=== PATIENT | female | born 1995 | race Caucasian/White ===

== ENCOUNTER → 2021-12-18 15:14 | Outpatient (CLI) | payer OTHER, SELFPAY ==
[2021-12-18 15:58] LABS: COVID19 -Nasal RAPID Negative (Negative)
== END ==
PROVIDERS: PCP Nurse Practitioner Family; Visit Provider Family Medicine Sleep Medicine
DX: Z20.822 Contact with and (suspected) exposure to COVID-19 (principal)
CPT/HCPCS: 87635; C9803

== ENCOUNTER 2021-12-21 13:20 | Day surgery (SDC) | payer OTHER, SELFPAY ==
--- NOTE | 2021-12-21 | PATH_ITS ---
[facility] Accession Number: [id number] . 01 Material submitted: . rectum - RECTAL POLYP . 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 MRV 12/23/2021 1059 Local . 02 Electronically signed: . Yee Ruiz MD, Pathologist NPI- [id number] . 01 Gross description: . RECTAL POLYP: Received in formalin are multiple fragment(s) of james, soft tissue measuring 0.6 x 0.5 x 0.2 cm in aggregate submitted entirely in 1 cassette(s) /TRC 12/22/2021 1512 Local . 02 Pathologist provided ICD-10: K63.5, K62.5, R10.9, K59.00 . 02 CPT . 879157 Specimen Comment: A courtesy copy of this report has been sent to [facility] Performed at: 01 [facility] Cytology [address] [facility], [place], [place] [id number] MD Jackson Loaiza MD Phone: [phone] Performed at: 02 [facility] [address] [place], [place] [id number] MD Ashley Lozada MD Phone: [phone]
--- NOTE | 2021-12-21 13:37 | PM.HP.1 ---
History of Present Illness History of Present Illness Date Patient Seen: 12/21/21 Time Patient Seen: 13:37 Chief complaint: DX COLONOSCOPY Narrative: I reviewed the note from Alyssayosi Adorno November 24, 2021. No significant changes. No bleeding has been noted for the last couple of weeks. Patient History Surgical History H/O: hysterectomy History of appendectomy History of cholecystectomy Family & Social History Tobacco & Substance use: Smoking Status Never smoker Meds Home Medications and Allergies Home Medications Medication Instructions Recorded Confirmed Type acetaminophen 500 mg tablet 1,000 mg PO Q6H PRN 10/30/21 10/30/21 History (Tylenol Extra Strength) cetirizine 10 mg tablet 10 mg PO DAILY PRN 10/30/21 10/30/21 History hydroxyzine pamoate 25 mg capsule 25 mg PO BEDTIME PRN 10/30/21 10/30/21 History ibuprofen 400 mg tablet 400 mg PO Q6H 10/30/21 10/30/21 History norethindrone acetate 5 mg tablet 2.5 mg PO DAILY tab 10/30/21 10/30/21 History ondansetron 4 mg disintegrating 4 mg PO Q6H 10/30/21 10/30/21 History tablet sertraline 100 mg tablet 100 mg PO DAILY 10/30/21 10/30/21 History Allergies Allergy/AdvReac Type Severity Reaction Status Date / Time No Known Drug Allergies Allergy Verified 12/21/21 13:32 Review of Systems Review of Systems ROS: Yes All systems reviewed with the patient and are negative except as otherwise documented Exam Const General: cooperative and comfortable Orientation: alert [facility] Head: normocephalic Ears: external ears normal Nose: external nose normal Face and sinus: normal facial exam Mouth: oral mucosae normal Eyes General: appearance normal, both eyes and all related structures Neck Neck: normal visual inspection Chest Chest: normal inspection of the chest Resp Effort & Inspection: normal respiratory effort Cardio Rate: regular rate GI Inspection: normal to inspection Skin General: no rashes or lesions noted and No jaundice Neuro General: patient alert and moves all extremities Cognition: normal cognition Speech: speech normal Extrem General: no pedal edema Psych Appearance: grossly normal Assessment & Plan Assessment & Plan narrative: 26-year-old female with regular symptoms of abdominal pain, difficulty with constipation, intermittent rectal bleeding. Colonoscopy is pursued today. Time Spent With Patient Critical Care time: I spent a total of [] minutes of critical care time on this patient's care today; this time is exclusive of procedural time.
[2021-12-21 13:39] VITALS: BP 123/80; PULSE 79; RESP 16; TEMP 36.5; O2SAT 98; BMI 20.9
--- NOTE | 2021-12-21 13:39 | PM.PREOP ---
Pre-operative Note COVID-19 COVID-19 status: Negative Result date/Date tested (Pos, Neg/Pending): 12/18/21 Criteria for continued procedure: Possibility delay results in more complex future surgery or treatment Interval Note History & Physical reviewed/Exam performed by Physician: Yes Changes to H&P: Yes ASA Class (for procedural sedation): II
[2021-12-21] MEDS: SODIUM CHLORIDE 0.9% 1,000 ML 84 ML IV (13:49)
--- NOTE | 2021-12-21 15:08 | SUR.OPER ---
SHORT PERIOD OF EXTERNAL ABDOMINAL PRESSURE
--- NOTE | 2021-12-21 15:18 | PM.OP.COLON ---
Operative Date/Time/Diagnoses Date of procedure: 12/21/21 Time of procedure: 15:18 Pre-op diagnosis: Abdominal pain constipation rectal bleeding. Post-op diagnosis: same Procedure & Clinicians Study performed: Colonoscopy with hot snare polypectomy Same procedure as scheduled: Yes Indications: Abdominal pain constipation rectal bleeding. Surgeon: Oswaldo Sharif Procedure Notes SCOAP/Timeout: Done Procedure in detail: After the risks and benefits were explained, written and verbal informed consent was obtained. The patient was brought into the procedure room and placed into the left lateral decubitus position. Please see nurse strategy director notes for sedation details. Digital rectal examination was accomplished. The scope was introduced into the patient and advanced under direct visualization to the cecum as identified by the appendiceal orifice and ileocecal valve. The scope was slowly withdrawn to carefully examine the mucosa for any defects or lesions. Comprehensive imaging was accomplished throughout the rectum including the dentate line. The colon was decompressed, the scope was then removed from the patient who tolerated the procedure well. Pediatric colonoscope Bowel prep adequate Scope withdrawal time: 9 minutes Sedation minutes: 21 Complications: none Impression: Patient had a slightly tortuous sigmoid region rendering navigation slightly challenging. No proctitis no colitis throughout. The terminal ileum was interrogated and appeared visually normal. There was an approximately 7 mm pedunculated polyp in the rectum removed with hot snare. No additional pathology was appreciated throughout. Endoscopic diagnosis 1. Rectal polyp 2. Otherwise visually unremarkable colonoscopy and terminal ileoscopy Post-procedure Plan for aftercare: 1. Await histopathology 2. Repeat colonoscopy will likely be suggested for 5 years if this polyp is confirmed adenomatous. 3. Follow up GI clinic with Alyssa Adorno Disposition: PACU
[2021-12-21 15:22] VITALS: BP 102/59; PULSE 61; RESP 13; TEMP 36.8; O2SAT 98
[2021-12-21 15:25] VITALS: BP 105/70; PULSE 63; RESP 18; O2SAT 98
[2021-12-21 15:30] VITALS: BP 100/74; PULSE 63; RESP 18; O2SAT 98
[2021-12-21 15:44] VITALS: BP 102/69; PULSE 72; RESP 16; O2SAT 98
== END 2021-12-21 15:55 | disposition home or self-care (01) ==
PROVIDERS: PCP Nurse Practitioner Family; Referring Provider Internal Medicine Gastroenterology; Visit Provider Internal Medicine Gastroenterology
PROC: 0DJD8ZZ Inspection of Lower Intestinal Tract, Via Natural or Artificial Opening Endoscopic (ICD-10-PCS; CPT 45378; principal; 2021-12-21 14:30)
DX: R10.9 Unspecified abdominal pain (principal); K62.5 Hemorrhage of anus and rectum; K59.00 Constipation, unspecified; K62.1 Rectal polyp
CPT/HCPCS: 45385; J2704

== ENCOUNTER → 2022-02-02 11:49 | Outpatient (CLI) | payer OTHER, SELFPAY ==
--- NOTE | 2022-02-02 11:52 | DI.MRI.S_ITS ---
PROCEDURE: MR PELVIS WO CON INDICATIONS: Pelvic pain TECHNIQUE: Noncontrast coronal and axial T1 spin echo and STIR through the bony pelvis. COMPARISON: None. FINDINGS: Image quality: Excellent. Bones: Bone marrow of the pelvic ring, sacrum, and proximal femurs show normal signal throughout. No intraosseous lesions or fractures identified. The visualized lower lumbar spine appears normally aligned. Tendons: The gluteus medius and minimus tendons appear intact, without associated muscle atrophy. The nearby proximal iliotibial band also appears intact. The iliopsoas tendon appears intact, without adjacent bursal fluid collections or evidence for impingement syndrome. The origin of the hamstring tendon is intact at the ischial tuberosity, as well as the associated sacrotuberous ligament. The straight and reflected heads of the rectus femoris muscle origin appear intact, as well as the conjoint tendon. Soft tissues: Visualized muscles demonstrate normal bulk and internal signal. No joint effusions. There is a small amount of free fluid within the pelvis, within physiological limits in a menstruating female. Urinary bladder is decompressed. Hysterectomy Genitourinary structures and bowel loops otherwise appear normal where visualized. IMPRESSION: 1. No osseous abnormalities. 2. Postsurgical sequelae. 3. Small amount of free fluid within the pelvis, within physiological limits in a menstruating female. Dictated by: Paula Willis M.D. on 02/02/2022 at 14:13 Approved by: Paula Willis M.D. on 02/02/2022 at 14:15
== END ==
PROVIDERS: PCP Nurse Practitioner Family; Referring Provider Physical Medicine & Rehabilitation Pain Medicine; Visit Provider Physical Medicine & Rehabilitation Pain Medicine
DX: R10.2 Pelvic and perineal pain (principal)
CPT/HCPCS: 72195

== ENCOUNTER 2022-04-01 13:29 | Emergency (ER) | payer OTHER, SELFPAY ==
[2022-04-01] VITALS (8 sets, daily range): BP systolic 120–128; BP diastolic 73–82; PULSE 73–89; RESP 16–18; TEMP 37.6; O2SAT 97–100; BMI 20.9
[2022-04-01 14:21] LABS: Add Manual Diff / Slide Review NO; Basophils Absolute Auto 0 /uL (0-100); Basophils Percent Auto 0.5 % (0-2); Eosinophils Absolute Auto 0 /uL (0-450); Eosinophils Percent Auto 0.4 % (2-4); Hematocrit 39.1 % (36-46); Hemoglobin 13.8 g/dL (12.0-16.0); Lymphocytes Absolute Auto 1700 /uL (1100-4500); Lymphocytes Percent Auto 30.1 % (25-40); Mean Corpuscular HGB Conc 35.2 % (30-36); Mean Corpuscular Hemoglobin 32.5 PG (26-34); Mean Corpuscular Volume 92.3 fL (80-100); Monocytes Absolute Auto 600 /uL (0-900); Neutrophils Absolute Auto 3300 /uL (1500-7000); Platelet Count 292 X10^3/uL (150-400); Red Blood Cell Count 4.23 X10^6/uL (4.0-5.2); Red Cell Distribution Width 12.2 % (11.6-14.8); White Blood Cell Count 5.7 X10^3/uL (4.5-11.0)
[2022-04-01 14:31] LABS: Alanine Aminotransferase 12 IU/L (<35); Albumin 4.8 g/dL (3.5-5.0); Albumin Globulin Ratio 1.3 (1.0-2.8); Alkaline Phosphatase 52 U/L (38-126); Aspartate Aminotransferase 23 IU/L (14-36); BUN Creatinine Ratio 18.8 (6-22); Bilirubin Total 0.9 mg/dL (0.2-1.3); Blood Urea Nitrogen 12 mg/dL (7-17); Calcium 9.4 mg/dL (8.4-10.2); Carbon Dioxide 20 mmol/L (22-32); Chloride 108 mmol/L (98-107); Estimated Glomerular Filt Rate > 60 mL/min (>60); Globulin 3.7 g/dL (1.7-4.1); Glucose 105 mg/dL (70-100); HEMOLYSIS < 15 (0-50); Lipase 109 U/L (23-300); Potassium 3.9 mmol/L (3.4-5.1); Sodium 138 mmol/L (137-145); Total Protein 8.5 g/dL (6.3-8.2)
--- NOTE | 2022-04-01 16:51 | DI.US.S_ITS ---
PROCEDURE: US PELVIC COMPLETE INDICATIONS: hx of hysterectomy and salpingectomy, left pelvic pain TECHNIQUE: Real-time scanning was performed of the pelvic organs, with image documentation. Additional endovaginal scanning was necessary due to incomplete visualization of the adnexal and endometrial structures by transabdominal scanning. COMPARISON: None. FINDINGS: Uterus: Hysterectomy Ovaries: Right and left ovaries measure 2.5 x 2.6 x 1.6 cm and 2.5 x 1.7 x 2.3 cm respectively. Both ovaries have appropriate size, echotexture and vascularity without evidence of torsion or adnexal mass. Other: No pathologic free abdominal or pelvic fluid. IMPRESSION: Unremarkable ultrasound the pelvis status post hysterectomy Approved by: Guanaco Thomas M.D. on 04/01/2022 at 16:52
--- NOTE | 2022-04-01 16:54 | ED.ABDPAIN ---
HPI - Abdominal Pain <Ashley Geller BALANCE SHEET ANALYST - Last Filed: 04/01/22 20:15> General Chief Complaint: Abdominal Pain Stated Complaint: Abd pain Time Seen by Provider: 04/01/22 16:40 Source: patient Mode of arrival: Ambulatory History of Present Illness HPI narrative: This is a 26-year-old female with history of complicated pelvis due to endometriosis has surgical history including hysterectomy, fallopian tubes, and excessive endometrial tissue who presents to the emergency department complaining of two weeks of increasing left-sided pelvic tenderness. Patient reports that her menses have started to become more regular, her last menses was 03/12/22. Patient has recently established care with Dr. Jacqueline Diehl from the [facility]. She reports having increased pain in her abdomen and back, left-sided abdominal pain, she had a colonoscopy recently here at this hospital with a polyp removed which was benign. She has a history of connective tissue disorders in her family, denies any history of Mis-Danlos syndrome. She denies history of blood clots. Patient denies any history of , reports that her pain in her left lower pelvis is stabbing and constant. She reports that it is worse during a bowel movement and she has been having excess gas she takes norethindrone and cetirizine daily, denies any other regular medications. Related Data Home Medications Medication Instructions Recorded Confirmed acetaminophen 500 mg tablet 1,000 mg PO Q6H PRN Pain (Scale 10/30/21 12/29/21 (Tylenol Extra Strength) Score 1-3) cetirizine 10 mg tablet 10 mg PO DAILY 10/30/21 12/29/21 hydroxyzine pamoate 25 mg capsule 25 mg PO BEDTIME 10/30/21 12/29/21 ibuprofen 400 mg tablet 400 mg PO Q6H 10/30/21 12/29/21 norethindrone acetate 5 mg tablet 2.5 mg PO DAILY 10/30/21 12/29/21 ondansetron 4 mg disintegrating 4 mg PO Q6H 10/30/21 12/29/21 tablet sertraline 100 mg tablet 100 mg PO DAILY 10/30/21 12/29/21 Previous Rx's Medication Instructions Recorded hydrocodone 5 mg-acetaminophen 325 1 tab PO Q6-8H PRN pain #14 tabs 04/01/22 mg tablet polyethylene glycol 3350 17 17 g PO DAILY PRN soft stool #238 04/01/22 gram/dose oral powder (Miralax) grams Allergies Allergy/AdvReac Type Severity Reaction Status Date / Time No Known Drug Allergies Allergy Verified 12/29/21 14:21 Review of Systems <KVGN Martinez - Last Filed: 04/01/22 20:15> Review of Systems Narrative: General: denies fever, chills Head/Neck: denies headache, neck pain Eyes: denies visual changes, eye pain Cardio: denies chest pain, palpitations Respiratory: denies shortness of breath, cough GI: Endorses left lower quadrant/pelvic pain, nausea, vomiting, or diarrhea, complains of left pelvic pain without any changes to her stool or vaginal discharge. : denies dysuria, hematuria or flank pain MSK: denies new joint pain, muscle weakness or swelling Skin: denies rash, itching or wound Neuro: denies numbness, tingling, dizziness Patient History <KVNG Martinez - Last Filed: 04/01/22 20:15> Surgical History H/O: hysterectomy History of appendectomy History of cholecystectomy Social History household members: spouse Smoking Status: Never smoker Smoking Status: Never smoker alcohol intake frequency: a few times a week Substance Use Type: marijuana Exam <KVNG Martinez - Last Filed: 04/01/22 20:15> Narrative Exam Narrative: Independently reviewed vitals signs and nursing notes. General: cooperative, comfortable, in no acute distress, well groomed, mildly anxious Head: atraumatic, symmetrical facial expressions Neck: supple Eyes: equal round and reactive, EOMI, conjunctiva normal Nose: nares patent, no rhinorrhea Mouth/Throat: moist mucus membranes Cardiovascular: regular rate and rhythm, no peripheral edema, warm extremities Respiratory: normal effort, able to speak in complete sentences, no audible wheezing, stridor, or rales. No retractions or tachypnea. GI: abdomen soft, tender to palpation over her left pelvis, nondistended, no masses, no exquisite tenderness with exam, without guarding or rebound. MSK: moves all extremities, neurovascularly intact, no weakness, normal tone Skin: brisk capillary refill, no rash, no erythema Neuro: normal speech and cognition, A&O x3 Psych: mental status is grossly normal, congruent mood, normal affect, pleasant and cooperative Initial Vital Signs Initial Vital Signs: Vital Signs Temperature 99.7 F H 04/01/22 13:37 Pulse Rate 84 04/01/22 13:37 Respiratory Rate 16 04/01/22 13:37 Blood Pressure 120/82 04/01/22 13:37 Pulse Oximetry 98 04/01/22 13:37 Oxygen Delivery Method 04/01/22 13:37 <Xavier Price DO - Last Filed: 04/07/22 00:39> Initial Vital Signs Initial Vital Signs: Vital Signs Temperature 99.7 F H 04/01/22 13:37 Pulse Rate 84 04/01/22 13:37 Respiratory Rate 16 04/01/22 13:37 Blood Pressure 120/82 04/01/22 13:37 Pulse Oximetry 98 04/01/22 13:37 Oxygen Delivery Method 04/01/22 13:37 Course <KVNG Martinez - Last Filed: 04/01/22 20:15> Orders Ordered: Discontinued Medications Hydrocodone Bitart/Acetaminophen (Hydrocodone/Acet 5/325 Prepack) 1 bottle MISC SEEINSTR ONE Stop: 04/01/22 18:54 Last Admin: 04/01/22 19:08 Dose: 1 bottle Documented By: MADONNA Hydromorphone HCl (Hydromorphone 0.5 Mg Inj) 0.5 mg IV NOW ONE Stop: 04/01/22 16:52 Last Admin: 04/01/22 17:04 Dose: 0.5 mg Documented By: MADONNA(2) Lactated Ringer's (Lactated Ringers) 500 mls @ 1,000 mls/hr IV BOLUS ONE Stop: 04/01/22 17:20 Last Infusion: 04/01/22 18:38 Dose: 0 mls/hr Documented By: MADONNA(2) Admin: 04/01/22 17:04 Dose: 1,000 mls/hr Documented By: MADONNA(2) Ketorolac Tromethamine (Ketorolac 30 Mg/Ml Vial) 15 mg IV NOW ONE Stop: 04/01/22 16:52 Last Admin: 04/01/22 17:04 Dose: 15 mg Documented By: MADONNA(2) Oxycodone/Acetaminophen (Oxycodone/Acetaminophen 5/325 Tablet) 1 tab PO NOW ONE Stop: 04/01/22 18:47 Last Admin: 04/01/22 18:53 Dose: 1 tab Documented By: AMU Vital Signs Vital signs: Vital Signs - 8 hr 04/01/22 13:37 04/01/22 16:36 04/01/22 16:36 Temperature 99.7 F H Pulse Rate 84 89 Respiratory Rate 16 18 Blood Pressure 120/82 125/73 Pulse Oximetry 98 100 Oxygen Delivery Method Room Air 04/01/22 17:00 04/01/22 17:00 04/01/22 17:38 Temperature Pulse Rate 81 87 Respiratory Rate 18 Blood Pressure 128/75 Pulse Oximetry 99 99 Oxygen Delivery Method 04/01/22 18:00 04/01/22 18:30 04/01/22 19:00 Temperature Pulse Rate 81 80 73 Respiratory Rate Blood Pressure Pulse Oximetry 98 97 98 Oxygen Delivery Method 04/01/22 19:06 04/01/22 19:06 Temperature Pulse Rate 80 Respiratory Rate Blood Pressure 122/79 Pulse Oximetry 98 Oxygen Delivery Method Room Air <Xavier Price, - Last Filed: 04/07/22 00:39> Orders Ordered: Discontinued Medications Hydrocodone Bitart/Acetaminophen (Hydrocodone/Acet 5/325 Prepack) 1 bottle MISC SEEINSTR ONE Stop: 04/01/22 18:54 Last Admin: 04/01/22 19:08 Dose: 1 bottle Documented By: MADONNA Hydromorphone HCl (Hydromorphone 0.5 Mg Inj) 0.5 mg IV NOW ONE Stop: 04/01/22 16:52 Last Admin: 04/01/22 17:04 Dose: 0.5 mg Documented By: MADONNA(2) Lactated Ringer's (Lactated Ringers) 500 mls @ 1,000 mls/hr IV BOLUS ONE Stop: 04/01/22 17:20 Last Infusion: 04/01/22 18:38 Dose: 0 mls/hr Documented By: MADONNA(2) Admin: 04/01/22 17:04 Dose: 1,000 mls/hr Documented By: MADONNA(2) Ketorolac Tromethamine (Ketorolac 30 Mg/Ml Vial) 15 mg IV NOW ONE Stop: 04/01/22 16:52 Last Admin: 04/01/22 17:04 Dose: 15 mg Documented By: MADONNA(2) Oxycodone/Acetaminophen (Oxycodone/Acetaminophen 5/325 Tablet) 1 tab PO NOW ONE Stop: 04/01/22 18:47 Last Admin: 04/01/22 18:53 Dose: 1 tab Documented By: AMU Vital Signs Vital signs: Vital Signs - 8 hr 04/01/22 13:37 04/01/22 16:36 04/01/22 16:36 Temperature 99.7 F H Pulse Rate 84 89 Respiratory Rate 16 18 Blood Pressure 120/82 125/73 Pulse Oximetry 98 100 Oxygen Delivery Method Room Air 04/01/22 17:00 04/01/22 17:00 04/01/22 17:38 Temperature Pulse Rate 81 87 Respiratory Rate 18 Blood Pressure 128/75 Pulse Oximetry 99 99 Oxygen Delivery Method 04/01/22 18:00 04/01/22 18:30 04/01/22 19:00 Temperature Pulse Rate 81 80 73 Respiratory Rate Blood Pressure Pulse Oximetry 98 97 98 Oxygen Delivery Method 04/01/22 19:06 04/01/22 19:06 Temperature Pulse Rate 80 Respiratory Rate Blood Pressure 122/79 Pulse Oximetry 98 Oxygen Delivery Method Room Air MDM - Abdominal Pain <Ashley Geller [facility] - Last Filed: 04/01/22 20:15> Lab Data Result diagrams: 04/01/22 14:04 04/01/22 14:04 Labs: Lab Results 04/01/22 04/01/22 04/01/22 Range/Units 14:04 14:04 14:04 WBC 5.7 (4.5-11.0) X10^3/uL RBC 4.23 (4.0-5.2) X10^6/uL Hgb 13.8 (12.0-16.0) g/dL Hct 39.1 (36-46) % MCV 92.3 (80-100) fL MCH 32.5 (26-34) PG MCHC 35.2 (30-36) % RDW 12.2 (11.6-14.8) % Plt Count 292 (150-400) X10^3/uL Neut % (Auto) 59.0 (50-75) % Lymph % (Auto) 30.1 (25-40) % [place] % (Auto) 10.0 (3-14) % Eos % (Auto) 0.4 L (2-4) % Baso % (Auto) 0.5 (0-2) % Neut # (Auto) 3300 (9589-6677) /uL Lymph # (Auto) 1700 (7372-1595) /uL [place] # (Auto) 600 (0-900) /uL Eos # (Auto) 0 (0-450) /uL Baso # (Auto) 0 (0-100) /uL Sodium 138 (137-145) mmol/L Potassium 3.9 (3.4-5.1) mmol/L Chloride 108 H (98-107) mmol/L Carbon Dioxide 20 L (22-32) mmol/L BUN 12 (7-17) mg/dL Creatinine 0.64 (0.52-1.04) mg/dL Estimated GFR > 60 (>60) mL/min BUN/Creatinine Ratio 18.8 (6-22) Glucose 105 H (70-100) mg/dL Lactate 1.3 (0.7-2.1) mmol/L Calcium 9.4 (8.4-10.2) mg/dL Total Bilirubin 0.9 (0.2-1.3) mg/dL AST 23 (14-36) IU/L ALT 12 (<35) IU/L Alkaline Phosphatase 52 (38-126) U/L Total Protein 8.5 H (6.3-8.2) g/dL Albumin 4.8 (3.5-5.0) g/dL Globulin 3.7 (1.7-4.1) g/dL Albumin/Globulin Ratio 1.3 (1.0-2.8) Lipase 109 (23-300) U/L Point of care testing: Urine Dip Bedside Urine Glucose Negative Bedside Urine Bilirubin - Negative Bedside Urine Ketone - Negative Urine Specific [place] 1.015 Bedside Urine Occult Blood +/- Bedside Urine pH 7.0 Bedside Urine Protein - Negative Bedside Urine Urobilinogen 0.2 Bedside Urine Nitrite - Negative Bedside Urine Leukocytes - Negative Esterase Imaging Data CT scan - abdomen/pelvis: Radiologist's Impression: PROCEDURE:? CT ABDOMEN PELVIS W CON ? INDICATIONS:? 26-year-old female with left-sided pelvic pain, history of endometriosis, hx hysterectomy/salpigectomy, left pelvic pain ? TECHNIQUE:? After the administration of intravenous contrast, axial sections acquired from the lung bases to the pubic symphysis.? Coronal and sagittal reformats were performed.? For radiation dose reduction, the following was used:? automated exposure control, adjustment of mA and/or kV according to patient size.? ? COMPARISON:? None. ? FINDINGS: ? Lower thorax: The lung bases are clear.? Heart size normal.? No hiatal hernia. ? Liver:? Normal in size and attenuation. No contour deformity present. ? Biliary system:? Cholecystectomy.? No intra or extrahepatic bile duct dilation. ? Pancreas:? Unremarkable without mass or inflammation evident. ? Spleen:? Normal in size and density. ? Adrenals:? Normal morphology and density. ? Reproductive system:? Hysterectomy. ? Urinary system:? Normal renal size and attenuation. No renal calculi, hydronephrosis, or solid mass present.? Urinary bladder unremarkable. ? Gastrointestinal system:? Moderate fecal debris present throughout the colon.? No obstruction.? Stomach and small bowel unremarkable. ? Appendix:? Appendectomy ? Peritoneal spaces:? No mesenteric or retroperitoneal adenopathy.? No free air.? No free fluid.? ? Vasculature:? The IVC, aorta and iliac vasculature are unremarkable. ? Abdominal wall:? Abdominal wall intact without evidence of ventral or inguinal hernias. ? Musculoskeletal:? Normal bone mineralization.? No acute fractures.? ? IMPRESSION: ? 1. No acute CT findings in the abdomen and pelvis. ? 2. Moderate fecal debris throughout the colon without obstruction. ? ? Approved by: Guanaco Thomas M.D. on 04/01/2022 at 16:49? MDM Narrative Medical decision making narrative: This is a 26-year-old female with history of complicated endometriosis who presents to the emergency department with left pelvic pain for the last two months and states it has been getting worse over the last week. Patient has a history of hysterectomy, salpingectomy, cholecystectomy, appendectomy and has her remaining ovaries. Patient's UA is negative for any WBCs, nitrites, RBCs. Lab work was unremarkable overall. Patient does not have any leukocytosis, anemia, electrolyte abnormalities, elevated liver enzymes, bilirubin lipase, or other. Pelvic ultrasound was obtained and shows no pathologic free abdominal or pelvic fluid, both ovaries have appropriate size, echotexture, and vascularity without evidence of torsion or adnexal mass. Abdomen pelvis CT was obtained due to lack of findings on the ultrasound, no acute CT findings were found on the abdomen and pelvis either. Moderate fecal debris throughout the colon without obstruction. Discussed these findings with the patient, she endorses having painful bowel movements in this left lower quadrant. She has a colonoscopy two months ago with removal of one polyp but she is not had any further symptoms, no blood in her stool, and the polyp was benign. Discussed treating her pain with an additional stool softener, she is taking one at nighttime but discussed adding MiraLax, she was prescribed oral ketorolac for her pain encouraged to take it with food and water. She was also given a prescription of hydrocodone for this pain and encouraged to follow-up with OBGYN regarding her endometriosis. Patient reports that she has a referral for Dr. janie camarillo in [facility] but she does not see patients for for other OBGYN needs other than endometriosis. She was referred to Dr. Talamantes and encouraged to call make an appointment with [facility] for follow-up. Patient has history of pelvis MRI from 02/02/2022 also without significant findings. No peritoneal signs on abdominal exam. Patient remains p.o. tolerant. Serial abdominal exam without increase in abdominal pain. Given history and exam, low suspicion for acute abdominal process, such as acute cholecystitis, pancreatitis, perforated viscus, atypical appendicitis, colitis, diverticulitis or torsion. Extensive conversation about ER return precautions and need for close follow-up. Patient is appropriate and amenable to discharge home. Vital signs are stable on repeat examination is unremarkable. Patient has been informed of results. Patient has been given strict return to ER precautions for any new or worsening symptoms. Patient understands to follow up closely with outpatient providers as instructed. Patient understands plan and agrees to discharge home. All questions and concerns answered at this time. <Xavier Price, DO - Last Filed: 04/07/22 00:39> Lab Data Labs: Lab Results 04/01/22 04/01/22 04/01/22 Range/Units 14:04 14:04 14:04 WBC 5.7 (4.5-11.0) X10^3/uL RBC 4.23 (4.0-5.2) X10^6/uL Hgb 13.8 (12.0-16.0) g/dL Hct 39.1 (36-46) % MCV 92.3 (80-100) fL MCH 32.5 (26-34) PG MCHC 35.2 (30-36) % RDW 12.2 (11.6-14.8) % Plt Count 292 (150-400) X10^3/uL Neut % (Auto) 59.0 (50-75) % Lymph % (Auto) 30.1 (25-40) % [place] % (Auto) 10.0 (3-14) % Eos % (Auto) 0.4 L (2-4) % Baso % (Auto) 0.5 (0-2) % Neut # (Auto) 3300 (2438-1747) /uL Lymph # (Auto) 1700 (6607-4861) /uL [place] # (Auto) 600 (0-900) /uL Eos # (Auto) 0 (0-450) /uL Baso # (Auto) 0 (0-100) /uL Sodium 138 (137-145) mmol/L Potassium 3.9 (3.4-5.1) mmol/L Chloride 108 H (98-107) mmol/L Carbon Dioxide 20 L (22-32) mmol/L BUN 12 (7-17) mg/dL Creatinine 0.64 (0.52-1.04) mg/dL Estimated GFR > 60 (>60) mL/min BUN/Creatinine Ratio 18.8 (6-22) Glucose 105 H (70-100) mg/dL Lactate 1.3 (0.7-2.1) mmol/L Calcium 9.4 (8.4-10.2) mg/dL Total Bilirubin 0.9 (0.2-1.3) mg/dL AST 23 (14-36) IU/L ALT 12 (<35) IU/L Alkaline Phosphatase 52 (38-126) U/L Total Protein 8.5 H (6.3-8.2) g/dL Albumin 4.8 (3.5-5.0) g/dL Globulin 3.7 (1.7-4.1) g/dL Albumin/Globulin Ratio 1.3 (1.0-2.8) Lipase 109 (23-300) U/L Point of care testing: Urine Dip Bedside Urine Glucose Negative Bedside Urine Bilirubin - Negative Bedside Urine Ketone - Negative Urine Specific [place] 1.015 Bedside Urine Occult Blood +/- Bedside Urine pH 7.0 Bedside Urine Protein - Negative Bedside Urine Urobilinogen 0.2 Bedside Urine Nitrite - Negative Bedside Urine Leukocytes - Negative Esterase Discharge Plan Departure Patient Disposition: Home Clinical Impression: Pelvic pain, Endometriosis Activity Restrictions/Additional Instructions: *You have been diagnosed with pelvic pain without any acute or dangerous findings in your abdomen/pelvis. Your lab work overall is reassuring. Your ultrasound and CT abdomen pelvis do not show any acute findings or any fluid collections or concerning masses. This is great news, please follow-up with your OBGYN Dr. Palencia and please call Dr. Talamantes and schedule an appointment with him or any of the other OBGYN in the clinic. It is good news it we did not find any concerning findings on your workup today, this is most likely your endometriosis. Please follow-up with your outpatient providers as you have them scheduled, if you develop any other symptoms, please return for new or worsening symptoms. If you develop a sore throat, shortness of breath, please consider COVID as well. This can cause inflammation of other areas. I hope you feel better soon. *What to do: *Please continue to take your regular medications as directed. [ x] New medication prescriptions sent to your pharmacy: [ DOD] [ ] New medication written as a paper prescription [ ] No new medications given *Please follow up with your primary care provider in 2-3 days, call for an appointment. Let them know you were seen in the Emergency Department and that we asked that you be seen for follow-up. We will electronically transmit a record of today's note if your PCP is in our system *If you do not have a primary care provider please contact [phone] to establish care with one of the [facility] primary care providers. *Return to Emergency Department if you should have any new, worsening or concerning symptoms, such as [fever greater than 101F, chills, worsening pain, persistent vomiting or other bothersome symptoms] Prescriptions: New hydrocodone-acetaminophen 5-325 mg tablet 1 tab PO Q6-8H PRN (Reason: pain) Qty: 14 0RF polyethylene glycol 3350 [Miralax] 17 gram/dose powder 17 g PO DAILY PRN (Reason: soft stool) Qty: 238 0RF No Action sertraline 100 mg tablet 100 mg PO DAILY cetirizine 10 mg tablet 10 mg PO DAILY norethindrone acetate 5 mg tablet 2.5 mg PO DAILY hydroxyzine pamoate 25 mg capsule 25 mg PO BEDTIME ondansetron 4 mg tablet,disintegrating 4 mg PO Q6H acetaminophen [Tylenol Extra Strength] 500 mg tablet 1,000 mg PO Q6H PRN (Reason: Pain (Scale Score 1-3)) ibuprofen 400 mg tablet 400 mg PO Q6H Referrals: Marissa Arias ARNP [Primary Care Provider] - Marychuy Palencia MD [Non-Staff] - Tai Talamantes MD [Physician] - Visit Report Forms: Patient Portal/API <Xavier Price DO - Last Filed: 04/07/22 00:39> [facility] Wood Attestation: I was immediately available in the department for consultation. This documentation has been reviewed and I agree with assessment and plan. Supervised by Xavier Price DO
[2022-04-01] MEDS: KETOROLAC 30 MG/ML VIAL 15 MG IV (17:04)
[2022-04-01] MEDS: LACTATED RINGERS 500 ML 1000 ML IV (17:04)
[2022-04-01] MEDS: HYDROMORPHONE 0.5 MG INJ IV (17:04)
--- NOTE | 2022-04-01 17:08 | DI.CT.S_ITS ---
PROCEDURE: CT ABDOMEN PELVIS W CON INDICATIONS: 26-year-old female with left-sided pelvic pain, history of endometriosis, hx hysterectomy/salpigectomy, left pelvic pain TECHNIQUE: After the administration of intravenous contrast, axial sections acquired from the lung bases to the pubic symphysis. Coronal and sagittal reformats were performed. For radiation dose reduction, the following was used: automated exposure control, adjustment of mA and/or kV according to patient size. COMPARISON: None. FINDINGS: Lower thorax: The lung bases are clear. Heart size normal. No hiatal hernia. Liver: Normal in size and attenuation. No contour deformity present. Biliary system: Cholecystectomy. No intra or extrahepatic bile duct dilation. Pancreas: Unremarkable without mass or inflammation evident. Spleen: Normal in size and density. Adrenals: Normal morphology and density. Reproductive system: Hysterectomy. Urinary system: Normal renal size and attenuation. No renal calculi, hydronephrosis, or solid mass present. Urinary bladder unremarkable. Gastrointestinal system: Moderate fecal debris present throughout the colon. No obstruction. Stomach and small bowel unremarkable. Appendix: Appendectomy Peritoneal spaces: No mesenteric or retroperitoneal adenopathy. No free air. No free fluid. Vasculature: The IVC, aorta and iliac vasculature are unremarkable. Abdominal wall: Abdominal wall intact without evidence of ventral or inguinal hernias. Musculoskeletal: Normal bone mineralization. No acute fractures. IMPRESSION: 1. No acute CT findings in the abdomen and pelvis. 2. Moderate fecal debris throughout the colon without obstruction. Approved by: Guanaco Thomas M.D. on 04/01/2022 at 16:49
[2022-04-01 17:15] LABS: Lactate (Lactic Acid) 1.3 mmol/L (0.7-2.1)
[2022-04-01] MEDS: OXYCODONE/ACETAMINOPHEN 5/325 TABLET 1 TAB PO (18:53)
[2022-04-01] MEDS: HYDROCODONE/ACET 5/325 PREPACK 1 BOTTLE MISC (19:08)
== END 2022-04-01 19:13 | disposition home or self-care (01) ==
PROVIDERS: Emergency Medicine; Emergency Provider Nurse Practitioner Critical Care Medicine; PCP Nurse Practitioner Family
DX: R10.2 Pelvic and perineal pain (principal); N80.9 Endometriosis, unspecified; Z90.710 Acquired absence of both cervix and uterus
CPT/HCPCS: 36415; 74177; 76830; 76856; 80053; 81003; 83605; 83690; 85025; 96361; 96374; 96375; 99284; J1170; J1885

== ENCOUNTER → 2022-10-26 09:39 | Outpatient (CLI) | payer OTHER, SELFPAY | PROVIDERS: Referring Provider Obstetrics & Gynecology; Visit Provider Obstetrics & Gynecology | DX: Z13.9 Encounter for screening, unspecified (principal); Z79.818 Long term (current) use of other agents affecting estrogen receptors and estrogen levels | CPT/HCPCS: 36415; 82670 ==